=== PATIENT | male | born 1985 | race Caucasian/White ===

== ENCOUNTER 2016-09-25 08:30 | Emergency (ER) | payer OTHER ==
[~2016-09-25] VITALS: Ht 157.5 cm; Wt 59.0 kg
[~2016-09-25 08:30] MED LIST: ACNE CLEANSING1 EACH TP; BENADRYL25 MG PO; CLONAZEPAM 0.50.5 M1 PO; CLONAZEPAM0.5 MG PO; DIAZEPAM 10 MG10 M1 RECTAL; LAMICTAL100 MG PO; PROPRANOLOL 1010 MG PO; PROZAC 10 MG CA10 MG PO; RISPERDAL 1 MG T1 MG PO; RISPERDAL2 MG PO; VIMPAT200 MG PO
[2016-09-25] MEDS ORDERED: VIMPAT200 MG PO (09:37)
[2016-09-25] MEDS ORDERED: COL-RITE100 MG PO (09:38)
[2016-09-25] MEDS ORDERED: [UNRECOGNIZED DRUG - CODE] PO (09:39)
[2016-09-25] MEDS ORDERED: MUCINEX TA600 MG/TA2 PO (09:41)
[2016-09-25] MEDS ORDERED: [UNRECOGNIZED DRUG - OTHER] TP (09:42)
[2016-09-25 10:30] VITALS: BP 115/68
[2016-09-26] MEDS ORDERED: VIMPAT200 MG (01:31)
[2016-09-26] MEDS ORDERED: APAP500 (01:32)
[2016-09-26] MEDS ORDERED: MUCINEX TA600 MG/TA2 (01:33)
[2016-09-26] MEDS ORDERED: [UNRECOGNIZED DRUG - OTHER] (01:34)
[2016-09-26] MEDS ORDERED: [UNRECOGNIZED DRUG - OTHER] PO (01:35)
[2016-09-26] MEDS ORDERED: ZOFRAN ODT4 MG PO (05:50)
== END 2016-09-25 10:30 | disposition home or self-care (01) ==
LOC: ER 08:30
DX: T44.991A Poisoning by other drug primarily affecting the autonomic nervous system, accidental (unintentional), initial encounter (principal); F84.0 Autistic disorder; Y92.89 Other specified places as the place of occurrence of the external cause

== ENCOUNTER 2016-09-26 01:19 | Emergency (ER) | payer OTHER ==
[~2016-09-26] VITALS: Ht 167.6 cm; Wt 77.1 kg
[~2016-09-26 01:19] MED LIST changes: +COL-RITE100 MG PO; +MUCINEX TA600 MG/TA2 PO; +[UNRECOGNIZED DRUG - CODE] PO; +[UNRECOGNIZED DRUG - OTHER] TP
[2016-09-26] MEDS ORDERED: VIMPAT200 MG (01:31)
[2016-09-26] MEDS ORDERED: APAP500 (01:32)
[2016-09-26] MEDS ORDERED: MUCINEX TA600 MG/TA2 (01:33)
[2016-09-26] MEDS ORDERED: [UNRECOGNIZED DRUG - OTHER] (01:34)
[2016-09-26] MEDS ORDERED: [UNRECOGNIZED DRUG - OTHER] PO (01:35)
[2016-09-26 02:20] LABS: BASOPHILS 0.3 % (0.0-2.0); EOSINOPHILS 0.5 % (0.0-3.0); HEMATOCRIT 42.4 % (42.0-52.0); HEMOGLOBIN 14.4 gm/dL (14.0-18.0); LYMPHOCYTES 34.4 % (24.0-44.0); MCH 29.8 pg (26.0-34.0); MCHC 34.1 g/dL (28.0-37.0); MCV 87.5 fL (80.0-100.0); MONOCYTES 8.4 % (1.0-8.0); PLATELET COUNT 146 thou/uL (150-400); POLYS 56.4 % (36.0-66.0); RBC 4.84 mil/uL (4.50-6.00); WBC 7.1 thou/uL (4.0-11.0)
[2016-09-26 02:21] LABS: MANUAL DIFF NO
[2016-09-26 02:28] LABS: CALCIUM 9.8 mg/dL (8.5-10.1); CREATININE 1.1 mg/dL (0.7-1.3)
[2016-09-26 02:33] LABS: ALBUMIN 4.2 g/dL (3.4-5.0); DIRECT BILIRUBIN 0.1 mg/dL (<0.1-0.3); TOTAL BILIRUBIN 0.4 mg/dL (<0.1-1.0); TOTAL PROTEIN 8.5 g/dL (6.4-8.2)
[2016-09-26 04:45] LABS: URINE BLOOD NEGATIVE (Negative); URINE GLUCOSE-RANDOM* NEGATIVE (Negative); URINE KETONES 2+ (Negative); URINE LEUKOCYTES-REFLEX NEGATIVE (Negative); URINE PROTEIN (DIPSTICK) 1+ (Negative); URINE SPECIFIC GRAVITY >= 1.030 (1.003-1.035); URINE UROBILINOGEN 0.2 E.U./dl (0.2-1.0)
[2016-09-26 04:50] LABS: ICTOTEST (BILI CONFIRMATORY) Negative (Negative); URINE BILIRUBIN NEGATIVE (Negative); URINE COLOR DARK YELLOW
[2016-09-26 04:57] LABS: CASTS None Seen /LPF (None Seen); CRYSTALS None Seen /LPF (None Seen); SQUAMOUS None Seen /LPF (0-3); URINE RBC 0-2 Rare /HPF (0-2); URINE WBC-REFLEX 0-5 Rare /HPF (0-5)
[2016-09-26] MEDS ORDERED: ZOFRAN ODT4 MG PO (05:50)
[2016-09-26 07:00] VITALS: BP 130/00
== END 2016-09-26 07:04 | disposition home or self-care (01) ==
LOC: ER 01:19
PROVIDERS: Emergency Medicine
DX: R11.2 Nausea with vomiting, unspecified (principal); R94.5 Abnormal results of liver function studies; F84.0 Autistic disorder; D69.3 Immune thrombocytopenic purpura

== ENCOUNTER 2017-02-10 02:19 | Inpatient (IN) | payer OTHER ==
[~2017-02-10] VITALS: Ht 157.5 cm; Wt 59.0 kg
[~2017-02-10 02:19] MED LIST changes: +APAP500; +MUCINEX TA600 MG/TA2; +VIMPAT200 MG; +ZOFRAN ODT4 MG PO; +[UNRECOGNIZED DRUG - OTHER]; +[UNRECOGNIZED DRUG - OTHER] PO
[2017-02-10 02:35] VITALS: BP 147/75
[2017-02-10 05:32] LABS: ABSOLUTE NEUTROPHILS 3.1 thou/uL (1.4-8.2); BASOPHILS 0.4 % (0.0-2.0); EOSINOPHILS 0.5 % (0.0-3.0); HEMATOCRIT 44.1 % (42.0-52.0); HEMOGLOBIN 14.7 gm/dL (14.0-18.0); MCHC 33.3 g/dL (28.0-37.0); MONOCYTES 9.8 % (1.0-8.0); PLATELET COUNT 152 thou/uL (150-400); POLYS 62.3 % (36.0-66.0); RBC 5.06 mil/uL (4.50-6.00); RDW 15.1 % (10.5-14.5)
[2017-02-10 05:34] LABS: MANUAL DIFF NO
[2017-02-10 05:40] LABS: CALCIUM 9.7 mg/dL (8.5-10.1); CREATININE 0.8 mg/dL (0.7-1.3); POTASSIUM 4.7 mmol/L (3.5-5.1)
[2017-02-10 06:14] LABS: LARGE PLATELETS OCCASIONAL; PLATELET ESTIMATE NORMAL
[2017-02-10 06:34] LABS: URINE BILIRUBIN 1+ (Negative); URINE BLOOD NEGATIVE (Negative); URINE COLOR YELLOW; URINE GLUCOSE-RANDOM* NEGATIVE (Negative); URINE KETONES 2+ (Negative); URINE LEUKOCYTES-REFLEX NEGATIVE (Negative); URINE PROTEIN (DIPSTICK) 1+ (Negative); URINE SPECIFIC GRAVITY 1.025 (1.003-1.035)
[2017-02-10 06:37] LABS: ICTOTEST (BILI CONFIRMATORY) Negative (Negative)
[2017-02-10 06:40] LABS: CASTS None Seen /LPF (None Seen); CRYSTALS None Seen /LPF (None Seen); SQUAMOUS None Seen /LPF (0-3); URINE RBC None Seen /HPF (0-2); URINE WBC-REFLEX 0-5 Rare /HPF (0-5)
[2017-02-10 07:24] LABS: ALBUMIN 3.7 g/dL (3.4-5.0); ALKALINE PHOSPHATASE 112 U/L (46-116); DIRECT BILIRUBIN < 0.1 mg/dL (<0.1-0.3); SGOT 34 U/L (15-37); SGPT 19 U/L (30-65); TOTAL BILIRUBIN 0.4 mg/dL (<0.1-1.0); TOTAL PROTEIN 7.9 g/dL (6.4-8.2)
[2017-02-10 09:11] VITALS: BP 121/54
[2017-02-10 09:53] VITALS: BP 121/54
[2017-02-10 10:49] VITALS: BP 149/63
[2017-02-10] MEDS ORDERED: PROPRANOLOL 1010 MG PO (11:28)
[2017-02-10] MEDS ORDERED: VIMPAT200 MG PO (11:28)
[2017-02-10] MEDS ORDERED: MAPAP500 M1 PO (11:29)
[2017-02-10] MEDS ORDERED: VALIUM5 MG RECTAL (11:31)
[2017-02-10 19:30] VITALS: BP 128/92
[2017-02-11 08:10] LABS: HEMATOCRIT 43.8 % (42.0-52.0); HEMOGLOBIN 14.3 gm/dL (14.0-18.0); MCH 28.8 pg (26.0-34.0); MCHC 32.7 g/dL (28.0-37.0); MCV 87.9 fL (80.0-100.0); RBC 4.98 mil/uL (4.50-6.00); RDW 15.1 % (10.5-14.5); WBC 5.3 thou/uL (4.0-11.0)
[2017-02-11 08:18] LABS: CREATININE 0.8 mg/dL (0.7-1.3)
[2017-02-12] MEDS ORDERED: DEPAKOTE ER500 MG PO (10:50)
[2017-02-12] MEDS ORDERED: NUEDEXTA 20-101 EACH PO (10:51)
[2017-02-12] MEDS ORDERED: PROZAC10 MG PO (10:52)
[2017-02-12 15:57] VITALS: BP 140/60
[2017-02-13 12:33] LABS: CALCIUM 9.6 mg/dL (8.5-10.1); CREATININE 0.9 mg/dL (0.7-1.3); POTASSIUM 4.4 mmol/L (3.5-5.1)
== END 2017-02-13 19:51 | disposition home or self-care (01) | DRG 948 ==
LOC: ER 02:19 → EROBS 09:02 → 4N 10:21
PROVIDERS: Emergency Medicine; Hospitalist
DX: R41.82 Altered mental status, unspecified (principal); E87.0 Hyperosmolality and hypernatremia; F84.0 Autistic disorder; G40.909 Epilepsy, unspecified, not intractable, without status epilepticus; S09.93XA Unspecified injury of face, initial encounter; Z79.899 Other long term (current) drug therapy; W18.39XA Other fall on same level, initial encounter; Y93.89 Activity, other specified; Y92.89 Other specified places as the place of occurrence of the external cause; Y99.8 Other external cause status
CPT/HCPCS: 10790